=== PATIENT | female | born 1950 | race Caucasian/White ===

== ENCOUNTER 2017-03-02 07:45 | Inpatient (IN) | payer MEDICARE ==
[~2017-03-02] VITALS: Ht 168.9 cm; Wt 113.0 kg
[2017-03-03] MEDS ORDERED: METF1000 PO (14:28)
[2017-03-03] MEDS ORDERED: GLIP5TAB8 PO (14:28)
[2017-03-03] MEDS ORDERED: LISI-519 PO (14:28)
[2017-03-03] MEDS ORDERED: LETR2.5T PO (14:28)
[2017-03-03] MEDS ORDERED: PRAV40TA2 PO (14:28)
[2017-03-03] MEDS ORDERED: ASPI-110 PO (14:28)
[2017-03-03] MEDS ORDERED: LUTE20CA PO (14:33)
[2017-03-03] MEDS ORDERED: SUPECAP3 PO (14:33)
[2017-03-03] MEDS ORDERED: MULT1TAB84 PO (14:33)
[2017-03-03] MEDS ORDERED: FISH500C PO (14:33)
[2017-03-03] MEDS ORDERED: COQ-30CA2 PO (14:33)
[2017-03-03] MEDS ORDERED: CALCTAB33 PO (14:33)
[2017-03-03] MEDS ORDERED: NAPR220T95 PO (14:45)
[2017-03-07] MEDS ORDERED: HYDR-3288 PO (06:51)
[2017-03-07] MEDS ORDERED: ENOX40P SQ (06:52)
[2017-03-07] MEDS ORDERED: ASPI81CH3 CHEW (06:52)
[2017-03-07] MEDS ORDERED: ZOLPIDEM TARTRATE 5 MG TAB PO PRN (07:00)
[2017-03-07] MEDS ORDERED: BISACODYL 10 MG SUPP RECTAL PRN (07:00)
[2017-03-07] MEDS ORDERED: ALUMINUM/MAGNESIUM/SIMETH 30 ML CUP PO PRN (07:00)
[2017-03-07] MEDS ORDERED: MORPHINE SULFATE 4 MG/ML INJ IV PUSH PRN (07:00)
[2017-03-07] MEDS ORDERED: diphenhydrAMINE HCL 50 MG/ML VIAL IV PRN (07:00)
[2017-03-07] MEDS ORDERED: NALOXONE HCL 0.4 MG/ML AMP IV PRN (07:00)
[2017-03-07] MEDS ORDERED: Post-op Orders (for Pharmacy) MISC XX ONE (07:00)
[2017-03-07] MEDS ORDERED: ONDANSETRON HCL 4 MG/2 ML VIAL IVP PRN (07:00)
[2017-03-07 07:10] VITALS: BP 142/83; PULSE 100; RESP 20; TEMP 99.1; O2SAT 96
[2017-03-07] MEDS: CHLORHEXIDINE GLUCONATE 4% SOLN 120 ML BTL TOPICAL SCH (07:45)
[2017-03-07] MEDS ORDERED: LACTATED RINGER'S 1000 ML IV PRN (07:45)
[2017-03-07] MEDS ORDERED: POVIDONE IODINE 5% (ANTISEPSIS KIT) 4 APPLICATIONS EACH NARE PRN (07:45)
[2017-03-07] MEDS ORDERED: CHLORHEXIDINE GLUCONATE 2 % 1 PACK (2 CLOTHS) TOPICAL PRN (07:45)
[2017-03-07] MEDS: POVIDONE IODINE 7.5% SCRUB 118 ML BOTTLE TOPICAL SCH (07:45)
[2017-03-07] MEDS: ROPIVACAINE PERI-ARTICULAR INJECTION. P-ARTICULR SCH ×10 (07:45→10:54)
[2017-03-07] MEDS ORDERED: SODIUM CHLORID 0.9% 500 ML IV PRN (07:45)
[2017-03-07] MEDS ORDERED: VANCOMYCIN 1000 MG/NS 250 ML (for <70 kg) IV SCH ×2 (07:45)
[2017-03-07] MEDS ORDERED: INSULIN HUMAN REGULAR 1,000 UNITS/10 ML VIAL SQ PRN (07:45)
[2017-03-07] MEDS ORDERED: METOPROLOL TARTRATE 25 MG TAB PO PRN (07:45)
[2017-03-07] MEDS ORDERED: DEXAMETHASONE SOD PHOS PF 10 MG/ML VIAL IV ONE (08:00)
[2017-03-07] MEDS ORDERED: TRANEXAMIC ACID IV SCH (08:00)
[2017-03-07] MEDS: TRANEXAMIC PERI-ARTICULAR 3,000 MG/NS 100 ML P-ARTICULR SCH ×4 (08:00→10:54)
[2017-03-07] MEDS ORDERED: SODIUM CHLORIDE 0.9% IV SCH (08:00)
[2017-03-07] MEDS ORDERED: ceFAZolin 2 GM PREMIX 50 ML IV SCH (08:15)
[2017-03-07] MEDS ORDERED: SODIUM CHLORIDE 0.9% FLUSH 10 ML FLUSH IV FLUSH PRN (08:45)
[2017-03-07] MEDS: LISINOPRIL 5 MG TAB PO SCH (09:00)
[2017-03-07] MEDS ORDERED: glipiZIDE 5 MG TAB PO SCH (09:00)
[2017-03-07] MEDS: metFORMIN HCL 500 MG TAB PO SCH ×2 (09:00→17:51)
[2017-03-07] MEDS: SODIUM CHLORIDE 0.9% FLUSH 10 ML FLUSH IV FLUSH SCH ×2 (09:00→20:24)
[2017-03-07] MEDS ORDERED: FAMOTIDINE 20 MG/2 ML VIAL ONE (09:20)
[2017-03-07] MEDS ORDERED: fentaNYL CITRATE 250 MCG/5 ML AMP ONE (09:20)
[2017-03-07] MEDS ORDERED: ACETAMINOPHEN 1000 MG/100 ML VIAL IV ONE (09:20)
[2017-03-07] MEDS ORDERED: MIDAZOLAM HCL 5 MG/5 ML VIAL ONE (09:20)
[2017-03-07] MEDS ORDERED: BUPIVACAINE LIPOSOME PF 1.3% 20 ML VIAL ONE (09:30)
[2017-03-07] MEDS ORDERED: GENTAMICIN SULFATE 80 MG/2 ML VIAL ONE (09:56)
[2017-03-07] MEDS ORDERED: PROPOFOL 200 MG/20 ML AMP IV ONE (11:04)
[2017-03-07] MEDS ORDERED: PHENYLEPH/NS 1000 MCG/10 ML SYR IV ONE (11:04)
[2017-03-07] MEDS ORDERED: NEOSTIGMINE 3 MG/3 ML SYR IV ONE ×2 (11:04→12:00)
[2017-03-07] MEDS ORDERED: ONDANSETRON HCL 4 MG/2 ML VIAL IV PUSH ONE (11:05)
[2017-03-07] MEDS ORDERED: LACTATED RINGER'S 1000 ML INJ 1,000 ML IV ONE (11:05)
[2017-03-07] MEDS ORDERED: *morphine SULFATE 8 MG/ML PERIprocedure ONLY ONE ×3 (12:30→13:11)
--- NOTE | 2017-03-07 13:01 | HHI.DCPOC ---
Discharge Care Plan Diagnosis: (1) Primary localized osteoarthrosis, lower leg Your Health Problems Are: Difficulty with ADL Goals to Promote Your Health * To prevent worsening of your condition and complications * To maintain your health at the optimal level Directions to Meet Your Goals Take your medications as prescribed Follow your dietary instruction Follow activity as directed Keep your appointments as scheduled Take your immunizations and boosters as scheduled If your symptoms worsen call your PCP, if no PCP go to Urgent Care Center or Emergency Room Smoking is Dangerous to Your Health. Avoid second hand smoke Call the 24-hour hour crisis hotline for domestic abuse at Burke Andrews Mar 07, 2017 13:01
--- NOTE | 2017-03-07 13:02 | HHI.FF ---
Face to Face Verification Diagnosis: (1) Primary localized osteoarthrosis, lower leg Physical Therapy Gait training, Safety evaluation, Transfer training, bed to chair Knee: Total knee, Protocol: Right Right LE Weight Bearing: WB as tolerated Nursing RN: 3 days/week x 2 weeks Nursing: Sindy teaching, Dressing changes Dressing Changes: Daily dressing change I have seen patient Pablo Andrews on 03/07/17. My clinical findings support the need for the requested home health care services because: Limited ability to care for self High risk of falls I certify that my clinical findings support that this patient is homebound because: Post-op weakness Unsteady gait/balance Burke Andrews Mar 07, 2017 13:02
--- NOTE | 2017-03-07 13:15 | MP ---
cc: LIZ ARIAS M.D. DATE OF SURGERY 03/07/2017 PREOPERATIVE DIAGNOSIS Right knee osteoarthritis. POSTOPERATIVE DIAGNOSES Right knee osteoarthritis. PROCEDURE Right total knee arthroplasty. SURGEON Dr. Liz Arias DROP SHIPMENT CLERK Ashwin Andrews PA-C ANESTHESIA General with femoral nerve block. ESTIMATED BLOOD LOSS Less than 50 cc. COMPLICATIONS None. IMPLANTS USED DePuy Attune size 6 posterior stabilized femoral component, size 5 rotating platform tibial baseplate, size 7-mm polyethylene tibial insert, size 35-mm patella. JUSTIFICATION This patient is a 66-year-old female with a history of severe end-stage osteoarthritis involving the right knee. She has severe disabling pain with standing, walking, ambulation, weightbearing activities that does interfere with activities of daily living. She even has severe pain at rest. She has failed greater than three months of nonoperative conservative treatment to include medication therapy, injections, ambulatory assistive aids, home exercise program, weight loss, activity modification. X-rays of the right knee reveal severe end-stage osteoarthritis with [id number] joint space narrowing, subchondral sclerosis, subchondral cysts, osteophyte formation and varus deformity. The patient was counseled as to the risks, benefits and alternatives to a total knee arthroplasty. The risks discussed to include but are not limited to anesthesia, bleeding, infection, damage to nerves, blood vessels, pain, stiffness, failure of the components, blood clots, pulmonary embolism and even . The patient's pain is severe. She favored the benefits over the risks and did wish to proceed with surgery. PROCEDURE IN DETAIL Written consent was obtained. The patient was identified by name and taken to the operating room, placed supine on the operating room table. General anesthesia was administered as well as 2 grams of IV Ancef. She received preoperative femoral nerve block. A well-padded tourniquet was placed on the right thigh, the right lower extremity prepped and draped using isopropyl alcohol, Hibiclens solution and ChloraPrep solution. After a time-out was performed, an Esmarch bandage was used to exsanguinate the right lower extremity and the tourniquet inflated to 250 mmHg. A longitudinal incision was made over the anterior aspect of the right knee and medial parapatellar arthrotomy incision was performed. The patella was everted. The patellar resection guide was used resect 9 mm of the patella. The 35-mm guide was placed. Three drill holes were placed and the 35-mm trial fit well. Attention was turned to the femur where an intramedullary guide prabhu was placed. The distal femoral guide was set to remove 10-mm of distal femur, 5 degrees off the anatomic valgus axis alignment. An oscillating saw was used to perform the distal femoral cut. Attention was turned to the tibia where an extramedullary tibial guide was used to resect 5-mm off the lowest portion of the medial tibial plateau. The tibial spaced block 5-mm was placed which showed full extension. Attention was turned back to the femur where the AP sizer block measured size 6. The anterior reference 3-degree external rotational guide was used to pin a size [address] The anterior, posterior and chamfer cuts were performed. A size 6 PCL box guide was pinned in place and the PCL was boxed out with an oscillating saw. The medial and lateral meniscus remnants were removed as well as bone and soft tissue debris from the posterior portion of the knee. A size 5 tibial baseplate was pinned in place, the tibia was drilled and punched. Trial components were evaluated and final components cemented in place. With the 7-mm tibial insert, the leg could achieve full extension, 0 degrees and flexion to 140, no evidence of tibial lift-off. Varus-valgus balance appeared appropriate and symmetric. There was mild lateral tracking of the patella and lateral release was performed which did improve the patella tracking to a central location. The tourniquet was deflated and Bovie cautery was used for hemostasis. The knee was thoroughly irrigated with sterile saline pulse lavage antibiotic impregnated solution. The arthrotomy incision was closed with #1 Vicryl suture, the subcutaneous layer closed with 2-0 Vicryl suture and the skin was closed with Dermabond. Sterile dressings were applied. The patient tolerated the procedure well with no intraoperative complication noted. Ashwin Andrews, physician high school assistant principal certified, was present during the entire procedure to include patient positioning and the procedure itself. The medical necessity of a physician high school assistant principal was indicated in this case due to the complexity of the procedure. He assisted with appropriate manipulation of the leg and also retraction of muscle, tendon, bone and neurovascular structures. He also assisted with preparation of bone and also implantation of the prosthetic replacement. Liz Arias MD JWAndrea/SSB /12:05 PM /1:03 PM
[2017-03-07] MEDS ORDERED: *HYDROmorphone PF 1 MG VIAL PERIprocedural Use ONLY ONE (13:31)
[2017-03-07] MEDS: SODIUM CHLOR 0.9% 1000 ML INJ 1,000 ML IV SCH ×2 (13:45→19:00)
--- NOTE | 2017-03-07 14:36 | RADRPT ---
EXAM DATE/TIME: 03/07/2017 14:10 [place] COMPARISON: No previous studies available for comparison. INDICATIONS : Post op right knee MEDICAL HISTORY : None. SURGICAL HISTORY : None. ENCOUNTER: Initial ACUITY: 1 day PAIN SCORE: Non-responsive. LOCATION: Right knee FINDINGS: The patient is status post right total knee replacement with prosthesis in good position. There is no fracture or dislocation. CONCLUSION: 1. Status post right total knee replacement with prosthesis in good position. 2. No acute fracture or dislocation. Fidel Jin MD on March 07, 2017 at 14:15 Board Certified Radiologist. This report was verified electronically.
[2017-03-07] MEDS: ACETAMINOPHEN/HYDROcodone 325 MG/7.5 MG TAB PO PRN ×2 (15:44→20:24)
[2017-03-07 16:25] VITALS: BP 96/49; PULSE 77; RESP 16; TEMP 96.3; O2SAT 96
--- NOTE | 2017-03-07 18:22 | PD.CONS ---
HPI Service [facility] Hospitalists Consult Requested By Dr Hunter Reason for Consult Medical management Primary Care Physician Fay Valero MD Diagnoses: History of Present Illness This is a 66-year-old female with past medical history of posterior process of the right knee who presents to [facility] with a history of long- standing right knee pain for approximately one year, she states that she tried steroid injections but the pain was still severe. The patient presents for elective right knee arthroplasty. The patient denies chest pain, shortness of breath, nausea, vomiting, abdominal pain, no fevers or chills. Pain in the right knee is absent. Review of Systems As per history of present illness, other systems reviewed by me and negative. Past Family Social History Allergies: Coded Allergies: No Known Allergies (Unverified , 03/03/17) Past Medical History 1. Diabetes type 2. 2. Diverticulosis. 3. Glaucoma 4. Multifocal right breast cancer 2011. 5. Peptic ulcer disease or GERD. 6. Skin cancer. 7. Hyperlipidemia. 8. Hypertension. Past Surgical History 1. Eye surgery for glaucoma in 2007.. 2. Tonsillectomy 3. Expiratory laparotomy with right oophorectomy. 4. D&C 5. Right lumpectomy Reported Medications Aspirin 81 Low Dose (Aspirin) 81 Mg Chew 81 Mg CHEW BID Lovenox Inj (Enoxaparin Sodium) 40 Mg/0.4 Ml Syr 40 Mg SQ DAILY [place] (Hydrocodone-Acetaminophen) 7.5-325 mg Tab 1-2 Tab PO Q6H PRN Aleve (Naproxen Sodium) 220 Mg Tab 220 Mg PO BID PRN Super B-50 Complex (B-Complex W/Biotin & Folic Acid) 1 Cap 1 Cap PO DAILY Lutein 20 Mg Cap 20 Mg PO DAILY Coq-10 (Coenzyme Q10 (Ubidecarenone)) 30 Mg Cap 100 PO BID Fish Oil (Masterson-3 Fatty Acids) 500 Mg Cap Unknown Dose PO BID Multivitamin Adults (Multiple Vitamins W/ Minerals) 1 Tab 1 Tab PO DAILY Calcium 600+D Plus Minerals (Calcium Carbonate-Vitamin D W/Minerals) 600-400 Mg- Unit Tab 1 Tab PO BID Aspirin 81 (Aspirin) 81 Mg Tabdr 81 Mg PO DAILY Pravastatin 40 Mg Tab 40 Mg PO HS Letrozole 2.5 Mg Tab 1 Tab PO DAILY Metformin (Metformin HCl) 1,000 Mg Tab 1,000 Mg PO BIDPC With meals Glipizide 5 Mg Tab 5 Mg PO DAILY Take 30 minutes before a meal Lisinopril 5 Mg Tab 5 Mg PO DAILY Active Ordered Medications Current Medications Medications (Trade) Dose Ordered Sig/Shakeel Route Start Time Stop Time Status Last Admin (Glucotrol) 5 mg DAILY PO 03/07/17 09:00 (Prinivil) 5 mg DAILY PO 03/07/17 09:00 Metformin HCl 1000 mg 1,000 mg BIDPC PO 03/07/17 09:00 (NS 1000 ml Inj) 1,000 ml @ 100 mls/hr Q10H IV 03/07/17 09:00 03/07/17 13:45 (NS Flush) 2 ml UNSCH PRN IV FLUSH 03/07/17 08:45 Sodium Chloride 2 ml 2 ml BID IV FLUSH 03/07/17 09:00 (Ancef Inj/NS Inj) 100 ml @ 200 mls/hr Q6H IV 03/07/17 15:00 03/08/17 03:29 03/07/17 14:35 (Lovenox Inj) 40 mg Q24H SQ 03/08/17 12:00 (Morphine Inj) 3 mg Q3H PRN IV PUSH 03/07/17 07:00 ([place] 7.5-325 Mg) 1 tab Q4H PRN PO 03/07/17 07:00 03/07/17 15:44 ([place] 7.5-325 Mg) 2 tab Q4H PRN PO 03/07/17 07:00 (Theragran M Tab) 1 tab BID PO 03/08/17 21:00 05/07/17 20:59 (Zofran Inj) 4 mg Q6H PRN IVP 03/07/17 07:00 (Colace) 100 mg BID PO 03/08/17 21:00 (Mag-Al Plus Susp Liq) 30 ml Q6H PRN PO 03/07/17 07:00 (Ambien) 5 mg HS PRN PO 03/07/17 07:00 (Dulcolax Supp) 10 mg DAILY PRN RECTAL 03/07/17 07:00 (Narcan Inj) 0.4 mg UNSCH PRN IV 03/07/17 07:00 (Benadryl Inj) 25 mg Q6H PRN IV 03/07/17 07:00 (Betadine 7.5% Scrub) 1 applic ONCE TOPICAL 03/07/17 07:45 03/10/17 07:44 Chlorhexidine Gluconate 1 applic 1 applic ONCE TOPICAL 03/07/17 07:45 03/10/17 07:44 Ropivacaine 24.63 ml/Ketorolac Tromethamine 30 mg/Epinephrine HCl 0.5 mg/ Clonidine 80 mcg/ Sodium Chloride 100 ml @ 200 mls/hr ONCE P-ARTICULR 03/07/17 07:45 03/08/17 07:44 03/07/17 10:54 (Cyklokapron Inj/ NS Inj) 130 ml @ 260 mls/hr ONCE P-ARTICULR 03/07/17 08:00 03/08/17 07:59 03/07/17 10:54 Family History Patient's father had colon cancer. Social History Patient's a former smoker but denies current smoking. She quit several years ago. Drinks alcohol occasionally. Denies illicit drug use The patient is and lives with her . Has 2 grownup children. Physical Exam Vital Signs Vital Signs Date Time Temp Pulse Resp B/P Pulse Ox O2 Delivery O2 Flow Rate FiO2 03/07/17 14:00 97.8 94 17 105/57 99 Nasal Cannula 2 03/07/17 13:45 98 17 115/51 99 Nasal Cannula 2 03/07/17 13:39 97 17 116/44 99 Nasal Cannula 3 03/07/17 13:00 97 15 110/62 98 Nasal Cannula 3 03/07/17 12:45 95 15 126/59 98 Nasal Cannula 3 03/07/17 12:30 98 15 124/70 98 Nasal Cannula 3 03/07/17 12:26 97.6 100 15 145/65 99 Simple Mask 6 03/07/17 07:10 99.1 100 20 142/83 96 Physical Exam GENERAL: This is a well-nourished, well-developed patient, in no apparent distress. SKIN: No rashes, ecchymoses or lesions. Cool and dry. HEAD: Atraumatic. Normocephalic. No temporal or scalp tenderness. EYES: Pupils equal round and reactive. Extraocular motions intact. No scleral icterus. No injection or drainage. ENT: Nose without bleeding, purulent drainage or septal hematoma. Throat without erythema, tonsillar hypertrophy or exudate. Uvula midline. Airway patent. NECK: Trachea midline. No JVD or lymphadenopathy. Supple, nontender, no meningeal signs. CARDIOVASCULAR: Regular rate and rhythm without murmurs, gallops, or rubs. RESPIRATORY: Clear to auscultation. Breath sounds equal bilaterally. No wheezes , rales, or rhonchi. GASTROINTESTINAL: Abdomen soft, non-tender, nondistended. No hepato-splenomegaly , or palpable masses. No guarding. MUSCULOSKELETAL: Extremities without clubbing, cyanosis, or edema. No edema noted. No calf tenderness. Negative Homans sign bilaterally. There is swelling in the right knee and the right lower extremity is dressed and on passive motion machine. Pedal pulses are present in bilateral lower extremities. NEUROLOGICAL: Awake and alert. Cranial nerves II through XII intact. Motor and sensory grossly within normal limits. Five out of 5 muscle strength in all muscle groups. Normal speech. Laboratory Laboratory Tests Test 03/07/17 07:40 Blood Type O NEGATIVE Antibody Screen NEGATIVE Blood Bank Comment Imaging Last Impressions Knee X-Ray 03/07/17 0684 Signed Impressions: Service Date/Time: Tuesday, March 07, 2017 14:10 - CONCLUSION: 1. Status post right total knee replacement with prosthesis in good position. 2. No acute fracture or dislocation. Fidel Jin MD Assessment and Plan Problem List: (1) Primary localized osteoarthrosis, lower leg ICD Code: M17.10 Status: Acute Plan: Management as per orthopedic surgery. Continue pain control as per orthopedic surgery, the patient is currently on oral [place] and IV morphine. (2) Diabetes ICD Code: E11.9 Status: Acute Plan: I will hold oral hypoglycemics including glipizide and metformin while the patient is hospitalized. I will place on SSI with insulin NovoLog in the meantime. (3) Hyperlipidemia ICD Code: E78.5 Status: Acute Plan: Hold statin. (4) H/O malignant neoplasm of breast ICD Code: Z85.3 Status: Acute Plan: Letrozole could predispose to thrombosis so I recommend to hold with the patient was hospitalized and not very mobile. (5) Hypotension ICD Code: I95.9 Status: Acute Plan: Patient's blood pressure is 96/49. Likely secondary to dehydration or hypovolemia. I will give 500 Ml's of normal saline bolus and hold lisinopril which the patient takes for renal protection secondary to diabetes. Assessment and Plan GI prophylaxis: Add PPI given history of GERD and ulcer disease. DVT prophylaxis: SCD on the non-surgical lower extremity, chemoprophylaxis as per orthopedic surgery. Code Status Full code Discussed Condition With Patient Problem Qualifiers (1) Diabetes: Qualified Code: E11.8 - Type 2 diabetes mellitus with complication, without long-term current use of insulin (2) Hypotension: Qualified Code: I95.9 - Hypotension, unspecified hypotension type Brody Reeves MD Mar 07, 2017 18:22
[2017-03-07 19:00] VITALS: BP 118/67; PULSE 89; RESP 16; TEMP 97.9; O2SAT 96
[2017-03-07] MEDS ORDERED: DEXTROSE 50% IN WATER 50 ML VIAL(D50) IV PUSH PRN (19:00)
[2017-03-07] MEDS ORDERED: GLUCAGON 1 MG/ML VIAL OTHER PRN (19:00)
[2017-03-07] MEDS: SODIUM CHLORID 0.9% 500 ML INJ 500 ML IV ONE (19:29)
[2017-03-07] MEDS: INSULIN ASPART SUPPLEMENTAL SCALE SQ SCH (20:24)
[2017-03-07 20:40] VITALS: O2SAT 98
[2017-03-07 21:58] LABS: HEMATOCRIT 32.1 % (35.0-46.0); MEAN CELL VOLUME 90.8 FL (80.0-100.0); MEAN CORPUSCULAR HEMOGLOBIN 29.7 PG (27.0-34.0); MEAN CORPUSCULAR HGB CONC 32.8 % (32.0-36.0); PLATELET COUNT 261 TH/MM3 (150-450); RED BLOOD COUNT 3.54 MIL/MM3 (4.00-5.30); RED CELL DISTRIBUTION WIDTH 12.9 % (11.6-17.2); REVIEW FLAG FINAL; WHITE BLOOD COUNT 15.7 TH/MM3 (4.0-11.0)
[2017-03-07 22:10] LABS: BICARBONATE 27.5 MEQ/L (21.0-32.0); POTASSIUM 5.4 MEQ/L (3.5-5.1)
[2017-03-08] MEDS: SODIUM CHLORID 0.9% 500 ML INJ 500 ML IV ONE (00:26)
[2017-03-08 00:42] VITALS: BP 95/67; PULSE 92; RESP 17; TEMP 98.5; O2SAT 95
[2017-03-08] MEDS: SODIUM CHLOR 0.9% 1000 ML INJ 1,000 ML IV SCH (03:44)
[2017-03-08 04:00] VITALS: BP 131/68; PULSE 92; RESP 16; TEMP 97.7; O2SAT 95
[2017-03-08] MEDS: ACETAMINOPHEN/HYDROcodone 325 MG/7.5 MG TAB PO PRN ×3 (04:20→15:17)
[2017-03-08] MEDS: INSULIN ASPART SUPPLEMENTAL SCALE SQ SCH ×2 (06:05→10:59)
[2017-03-08 07:17] LABS: HEMATOCRIT 30.3 % (35.0-46.0); MEAN CELL VOLUME 89.8 FL (80.0-100.0); MEAN CORPUSCULAR HEMOGLOBIN 30.1 PG (27.0-34.0); MEAN CORPUSCULAR HGB CONC 33.5 % (32.0-36.0); PLATELET COUNT 265 TH/MM3 (150-450); RED BLOOD COUNT 3.38 MIL/MM3 (4.00-5.30); RED CELL DISTRIBUTION WIDTH 12.9 % (11.6-17.2); REVIEW FLAG FINAL; WHITE BLOOD COUNT 11.4 TH/MM3 (4.0-11.0)
[2017-03-08] MEDS: CHLORHEXIDINE GLUCONATE 4% SOLN 120 ML BTL TOPICAL SCH (07:45)
[2017-03-08] MEDS: POVIDONE IODINE 7.5% SCRUB 118 ML BOTTLE TOPICAL SCH (07:45)
[2017-03-08 07:57] LABS: BICARBONATE 27.3 MEQ/L (21.0-32.0); POTASSIUM 4.3 MEQ/L (3.5-5.1)
[2017-03-08 08:00] VITALS: BP 130/65; PULSE 95; RESP 18; TEMP 98.3; O2SAT 96
[2017-03-08 08:05] VITALS: O2SAT 94
--- NOTE | 2017-03-08 08:19 | PD.ORT.PN ---
Subjective Post Op Day #: 1 Subjective Remarks doing well. pain controlled. denies cp and sob. Objective Vitals Vital Signs Date Time Temp Pulse Resp B/P Pulse Ox O2 Delivery O2 Flow Rate FiO2 03/08/17 04:00 97.7 92 16 131/68 95 03/08/17 00:42 98.5 92 17 95/67 95 03/07/17 20:40 98 Nasal Cannula 2.00 03/07/17 19:00 97.9 89 16 118/67 96 03/07/17 16:25 96.3 77 16 96/49 96 03/07/17 14:00 97.8 94 17 105/57 99 Nasal Cannula 2 03/07/17 13:45 98 17 115/51 99 Nasal Cannula 2 03/07/17 13:39 97 17 116/44 99 Nasal Cannula 3 03/07/17 13:00 97 15 110/62 98 Nasal Cannula 3 03/07/17 12:45 95 15 126/59 98 Nasal Cannula 3 03/07/17 12:30 98 15 124/70 98 Nasal Cannula 3 03/07/17 12:26 97.6 100 15 145/65 99 Simple Mask 6 I/O 03/07/17 03/07/17 03/07/17 03/08/17 03/08/17 03/08/17 07:00 15:00 23:00 07:00 15:00 23:00 Intake Total 1400 ml 408 ml 1957 ml Output Total 475 ml 200 ml 1050 ml Balance 925 ml 208 ml 907 ml Intake Oral 408 ml 480 ml IV Total 400 ml 1477 ml Other 1000 ml Output Urine Total 425 ml 200 ml 1050 ml Estimated Blood Loss 50 ml # Bowel Movements 0 0 Result Diagram: 03/08/17 0648 03/08/17 0648 Objective Remarks in bed eating, nad incision no erythema, no drainage neg homans nvi Assessment & Plan Ortho Post Op Day #: 1 Problem List: Assessment and Plan s/p R TKA wbat daily dressing changes lovenox d/c planning home with [facility] and pt - cleared today if progresses in PT rx in chart f/up dr cox 2 weeks Burke Andrews Mar 08, 2017 08:19
[2017-03-08] MEDS ORDERED: WALKER WHEELS/F1 MIS (08:21)
[2017-03-08] MEDS ORDERED: CPMMACHINE (08:21)
[2017-03-08] MEDS ORDERED: COMMODE 3-IN-11 MIS (08:21)
[2017-03-08] MEDS: SODIUM CHLORIDE 0.9% FLUSH 10 ML FLUSH IV FLUSH SCH (09:00)
[2017-03-08] MEDS: LISINOPRIL 5 MG TAB PO SCH (09:07)
[2017-03-08] MEDS ORDERED: COLA100C3 PO (09:10)
[2017-03-08 12:00] VITALS: BP 109/58; PULSE 94; RESP 18; TEMP 99; O2SAT 94
[2017-03-08] MEDS ORDERED: ENOXAPARIN SODIUM 40 MG/0.4 ML SYRINGE SQ SCH (12:00)
--- NOTE | 2017-03-08 15:22 | HHI.PR ---
Subjective Remarks Post op right knee surgery. Patient has been doing well ambulating. Blood sugars are controlled. Plan for discharge to home today. Medically stable and clear for discharge to home. Objective Vital Signs Date Time Temp Pulse Resp B/P Pulse Ox O2 Delivery O2 Flow Rate FiO2 03/08/17 12:00 99.0 94 18 109/58 94 03/08/17 08:05 94 21 03/08/17 08:00 98.3 95 18 130/65 96 03/08/17 04:00 97.7 92 16 131/68 95 03/08/17 00:42 98.5 92 17 95/67 95 03/07/17 20:40 98 Nasal Cannula 2.00 03/07/17 19:00 97.9 89 16 118/67 96 03/07/17 16:25 96.3 77 16 96/49 96 I/O 03/07/17 03/07/17 03/07/17 03/08/17 03/08/17 03/08/17 07:00 15:00 23:00 07:00 15:00 23:00 Intake Total 1400 ml 408 ml 1957 ml Output Total 475 ml 200 ml 1050 ml Balance 925 ml 208 ml 907 ml Intake Oral 408 ml 480 ml IV Total 400 ml 1477 ml Other 1000 ml Output Urine Total 425 ml 200 ml 1050 ml Estimated Blood Loss 50 ml # Bowel Movements 0 0 Result Diagram: 03/08/1748 03/08/17 0648 Objective Remarks GENERAL: A&Ox3, No distress, No pain reported. SKIN: Warm and dry. HEAD: Normocephalic. EYES: No scleral icterus. No injection or drainage. NECK: Supple, trachea midline. No JVD or lymphadenopathy. CARDIOVASCULAR: Regular rate and rhythm without murmurs, gallops, or rubs. RESPIRATORY: Breath sounds equal bilaterally. No accessory muscle use. GASTROINTESTINAL: Abdomen soft, non-tender, nondistended. MUSCULOSKELETAL: No cyanosis, or edema. Right knee is bandaged with limited ROM related to surgery. BACK: Nontender without obvious deformity. No CVA tenderness. Medications and IVs Administered Medications Medications (Trade) Dose Ordered Sig/Shakeel Route PRN Reason Start Time Stop Time Status Last Admin Dose Admin Lisinopril 5 mg 5 mg DAILY PO 03/07/17 09:00 03/08/17 09:07 Sodium Chloride (NS 1000 ml Inj) 1,000 ml @ 100 mls/hr Q10H IV 03/07/17 09:00 03/08/17 03:44 Sodium Chloride (NS Flush) 2 ml BID IV FLUSH 03/07/17 09:00 03/07/17 20:24 Enoxaparin Sodium (Lovenox Inj) 40 mg Q24H SQ 03/08/17 12:00 03/08/17 11:00 Acetaminophen/ Hydrocodone Bitart ([place] 7.5-325 Mg) 1 tab Q4H PRN PO PAIN LESS THAN 5 ON SCALE 03/07/17 07:00 03/08/17 04:20 Acetaminophen/ Hydrocodone Bitart ([place] 7.5-325 Mg) 2 tab Q4H PRN PO PAIN SCALE 5 TO 10 03/07/17 07:00 03/08/17 09:08 A/P Problem List: (1) Diabetes ICD Code: E11.9 Assessment & Plan: Resume prior home treatments Controlled (2) Hyperlipidemia ICD Code: E78.5 Assessment & Plan: Resume prior home treatments (3) HTN (hypertension) ICD Code: I10 Assessment & Plan: Resume prior home treatments Follow BP at home Hold treatments for any low BP (4) Primary localized osteoarthrosis, lower leg ICD Code: M17.10 Assessment & Plan: Post op right knee surgery Continue PT Follow with Ortho as an outpatient Assessment and Plan Medically stable for discharge to home today Problem Qualifiers (1) Diabetes: Qualified Code: E11.8 - Type 2 diabetes mellitus with complication, without long-term current use of insulin Los Sams MD Mar 08, 2017 15:22
[2017-03-08] MEDS ORDERED: DOCUSATE SODIUM 100 MG CAP PO SCH (21:00)
[2017-03-08] MEDS ORDERED: MULTIVITAMINS/MINERALS THERAPEUTIC TAB PO SCH (21:00)
--- NOTE | 2017-03-15 13:04 | MD ---
cc: LIZ ARIAS ADMISSION DATE: 03/07/2017 DISCHARGE DATE: 03/08/2017 ADMISSION DIAGNOSIS Severe degenerative osteoarthritis right knee. DISCHARGE DIAGNOSIS Severe degenerative osteoarthritis right knee. HISTORY OF PRESENT ILLNESS Ms. Andrews is a 66-year-old female who presented to the [facility] for evaluation by Dr. Liz Arias regarding her progressive right knee pain. The patient states the pain has been bothering her for many, many months and is currently inhibiting her activities of daily living. She states it is a severe, constant aching sensation noted with any weightbearing activities. She notes she has no alleviating factors at this point in time, although she has tried medications, bracing, physical therapy, home exercise program, weight loss attempts and corticosteroid injection without relief of symptoms. She has x-ray evidence of severe degenerative osteoarthritis of the right knee. While in the office the patient was counseled on her diagnosis and treatment options. The risks, benefits and indications all were discussed in great detail. The patient did elect to proceed with surgical intervention to include a right total knee arthroplasty. DATE OF SURGERY 03/07/2017. OPERATIVE PROCEDURE Right total knee arthroplasty. POSTOP After surgery the patient was admitted to [facility] where she received appropriate medical management, pain control, DVT prophylaxis as well as physical therapy. DISCHARGE Once being discharged from the hospital the patient is cleared to go home where she will receive home health care and home physical therapy. She is in stable condition. DISCHARGE INSTRUCTIONS She may weight-bear as tolerated. She has been instructed on proper wound care management and is to receive daily dressing changes. She has also been provided prescriptions for pain control as well as DVT prophylaxis medication. FOLLOWUP She has been provided a follow-up appointment to see Dr. Liz Arias in the office in approximately two weeks from the date of her surgery. The patient has asked appropriate questions which have been answered. The patient has been discharged. Dictated by: Ashwin Andrews PA-C Liz Arias MD JWM/DELFIN /8:03 AM /1:02 PM
== END 2017-03-08 15:30 | disposition home health service (06) | DRG 470 ==
LOC: HSDI 03-07 06:49 → N06B 03-07 14:40
PROVIDERS: ADMIT Orthopaedic Surgery Sports Medicine; ATTEND Orthopaedic Surgery Sports Medicine
PROC: 0SRC0J9 Replacement of Right Knee Joint with Synthetic Substitute, Cemented, Open Approach (ICD-10-PCS; principal; 2017-03-07 10:11)
DX: M17.11 Unilateral primary osteoarthritis, right knee (principal); I95.9 Hypotension, unspecified; E11.8 Type 2 diabetes mellitus with unspecified complications; I10 Essential (primary) hypertension; E78.5 Hyperlipidemia, unspecified; H40.9 Unspecified glaucoma; K21.9 Gastro-esophageal reflux disease without esophagitis; E86.1 Hypovolemia; E86.0 Dehydration; Z79.84 Long term (current) use of oral hypoglycemic drugs; Z85.828 Personal history of other malignant neoplasm of skin; Z87.11 Personal history of peptic ulcer disease; Z85.3 Personal history of malignant neoplasm of breast; Z87.891 Personal history of nicotine dependence
CPT/HCPCS: 73560; 80048; 82948; 85027; 86850; 86900; 86901; 94150; C1776; C9290; J0131; J0171; J0690; J0735; J1100; J1170; J1580; J1650; J1815; J1885; J2250; J2270; J2370; J2405; J2710; J2795; J3010; J3370; J7030; J7040; J7050; J7120; L1830